=== PATIENT | male | born 1965 | race African-American/Black ===

== ENCOUNTER 2023-02-25 11:33 | Emergency (ER) | payer MEDICARE, SELFPAY ==
[2023-02-25 12:03] VITALS: BP 146/80; PULSE 82; RESP 18; TEMP 36.8; O2SAT 99; BMI 22.6
--- NOTE | 2023-02-25 12:10 | PC.NURSE ---
eval by pa in PIT and DC
--- NOTE | 2023-02-25 12:17 | ED_ITS ---
HPI - Dental/Oral General Chief complaint: Dental/Oral Stated complaint: dental pain Time Seen by Provider: 02/25/23 12:10 Source: patient Mode of arrival: ambulatory Limitations: no limitations History of Present Illness HPI Narrative: 58 yold male presents to the ED for dental pain of upper molars. patient admits to poor dental hygeine. Patient denies recent trauma to the face, drooling, change in voice, chest pain, or shortness of breath. patient denies any recent trauma. Related Data Previous Rx's Medication Instructions Recorded amoxicillin 875 mg-potassium 1 tab PO Q12H 10 days #20 tabs 02/25/23 clavulanate 125 mg tablet naproxen 500 mg tablet 500 mg PO BID PRN pain 7 days #14 02/25/23 tabs Allergies Allergy/AdvReac Type Severity Reaction Status Date / Time No Known Allergies Allergy Unverified 08/04/20 15:26 Review of Systems Review of Systems: dental pain Yes all other systems are reviewed and are negative [facility] Social History Social History Advance Directives: No Advance Directives Information Provided: Yes Physical Exam Vital Signs: Vital Signs: Last Vital Signs Temp 98.3 F 02/25/23 12:03 Pulse 82 02/25/23 12:03 Resp 18 02/25/23 12:03 BP 146/80 H 02/25/23 12:03 Pulse Ox 99 02/25/23 12:03 O2 Del Method Nasal Cannula 02/25/23 12:03 BMI result Body Mass Index 22.6 Const: General: cooperative, healthy appearing, comfortable, no acute distress, well developed, alert, awake and Physically active Orientation/consciousness: oriented to person, oriented to place, oriented to time and patient oriented x3 HEENT: Other: Negatie for any facial/neck swelling Head: Yes normal to inspection, Yes No palpable skull fracture present, Yes normocephalic, Yes atraumatic and No abrasion Ears: hearing grossly normal bilaterally, external ears normal, TM's normal bilaterally, EAC's normal, mastoids normal and no periauricular adenopathy Teeth and gingiva: poor dentition (molars poor dentition) Teeth image: 1. Poor molar/decaying dentition. no gum swelling/redness/pus discharge. 2. Poor molar/decaying dentition. no gum swelling/redness/pus discharge. Eyes: General: appearance normal, both eyes and all related structures Neck: Neck: Yes normal visual inspection, Yes full ROM, Yes no lymphadenopathy, Yes no meningeal signs, Yes trachea midline, Yes supple, No anterior neck swelling and No tender Chest: Chest palpation & inspection: normal inspection of the chest and normal palpation of entire chest wall Resp: Effort & Inspection: normal respiratory effort and able to speak in complete sentences Auscultation: clear to auscultation bilaterally Cardio: Jugular venous distension: no JVD Heart sounds: S1 normal heart sound present and S2 normal heart sound present GI: Inspection: Yes normal to inspection and No abdominal wall ecchymosis Palpation (GI): Soft to palpation, not firm, nontender, no guarding and not rigid : General: No CVA tenderness and Yes no CVA tenderness Back/Spine/Pelvis: Back: no CVA tenderness, No CVA tenderness and No back tenderness Skin: General skin exam: no rashes or lesions noted and elasticity normal Neuro: General: oriented to person, oriented to place, oriented to time, patient oriented x3, gait normal, tone normal, moves all extremities, Normal light touch and pain sensation, no meningeal signs, no focal motor deficits, CN's II-XI intact bilaterally and normal sensation to monofilament Extrem: General: Yes normal to inspection and Yes full ROM Psych: Appearance: grossly normal, well kempt and not disheveled Course Course Course Narrative: RME: patient presents to the ED for dental pain. physical exam patient has mutliple decaying teeth upper. no facial swelling/neck swelling. Reevaluation(s) Reevaluation #1: patient discharged with antibiotics and informed to follow up with dentists. patient given lists of dentists to call. patient informed to return to the ED if symptoms worseneds Medical Decision Making Medical Decision Making MDM Narrative: 58-year-old male presents to the ED for dental pain. Negative any facial swel ling, drooling, change in voice, hoarseness, submandibular swelling, neck swelling. Oral exam shows dental decay/poor dental hygiene. Patient discharged with antibiotics. Patient in any distress. History physical exam does not indicate retro pharyngeal abscess, Sebastian angina, dental abscess, or cellulitis. Differential Diagnosis Differential Diagnoses: The differential diagnosis associated with the presentation includes (Dental abscess, tooth infection, retropharyngeal abscess,) Admission/Observation Consideration of admission/observation: Escalation of care including admission/observation considered Prescription Management I considered prescription management with: Antibiotic Discharge Plan Discharge Clinical Impression: Toothache, Dental decay Patient Disposition: Home, Self-Care Instructions: Toothache (ED) Additional Instructions: Regrese al servicio de urgencias inmediatamente si tiene hinchaz?n facial, dolor de muelas, fiebre, escalofr?os, babeo, cambio de voz, hinchaz?n del jennifer o cualquier otro s?ntoma preocupante. llame a nate de los dentistas de la lista de dentistas que le dieron. Prescriptions: New amoxicillin-pot clavulanate 875-125 mg tablet 1 tab PO Q12H 10 Days Qty: 20 0RF naproxen 500 mg tablet 500 mg PO BID PRN (Reason: pain) 7 Days Qty: 14 0RF Stand Alone Forms: Work/School Release Interventions: ED Discharge Assessment Last Done: 02/25/23 12:10 Discharge Date/Time: 02/25/23 12:26 Print Language: Japanese
== END 2023-02-25 12:26 | disposition home or self-care (01) ==
PROVIDERS: Emergency Provider Emergency Medicine
DX: K02.9 Dental caries, unspecified (principal)
CPT/HCPCS: 99282; 99283

== ENCOUNTER 2023-12-26 13:03 | Emergency (ER) | payer MEDICARE, SELFPAY ==
--- NOTE | ~2023-12-26 | US_ITS ---
EXAMINATION: Noninvasive assessment of the right lower extremities with ARTERIAL DUPLEX. CLINICAL INFORMATION: Decreased pedal pulses TECHNIQUE: Duplex Doppler techniques with waveform analysis and measurement of velocities in the right common femoral, profunda femoris, superficial femoral, popliteal and tibial arteries were performed. COMPARISON: None FINDINGS: DIRECT DUPLEX DOPPLER FINDINGS: RIGHT LEG: Common femoral artery: 67.0 cm/s, phasicity: Biphasic. Mild calcified plaque Profunda femoris artery: 141 cm/s, phasicity: Triphasic Superficial femoral artery (proximal): 159 cm/s, phasicity: Triphasic Superficial femoral artery (mid): Occluded. 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 Dampened monophasic waveforms with decrease velocities in the popliteal artery and below-knee runoff vessels
--- NOTE | ~2023-12-26 | US_ITS ---
EXAMINATION: US VENOUS ULTRASOUND WITH DOPPLER LOWER EXTREMITY, RIGHT CLINICAL INFORMATION: Posterior right thigh pain COMPARISON: None available. TECHNIQUE: Ultrasound of the deep veins is performed from the hip to the calf with compression sonography and color and pulse Doppler assessment. Spectral analysis with color-flow imaging is performed. FINDINGS: There is normal venous compression and respiratory variation and augmented flow. The visualized common femoral vein, superficial femoral vein, profunda femoral vein, popliteal vein, and the trifurcation region shows no evidence of deep venous thrombosis. There is no significant popliteal fossa cyst. If the patient's symptoms persist, followup ultrasound in 5 days 7 days might be of value to exclude proximal propagation from a non-visualized calf vein. US/US venous duplex LE RT IMPRESSION: No DVT demonstrated in the right lower extremity.
[2023-12-26 13:23] VITALS: BP 140/87; PULSE 91; RESP 17; TEMP 36.7; O2SAT 98; BMI 22.6
--- NOTE | 2023-12-26 13:25 | ED_ITS ---
HPI - Extremity Problem General Chief complaint: Extremity Problem Stated complaint: R foot pain Time Seen by Provider: 12/26/23 14:10 Source: patient Mode of arrival: ambulatory Limitations: no limitations History of Present Illness HPI Narrative: 58-year-old male presents with atraumatic right lower extremity pain for the past 3 days. Patient reports the pain is mostly in his thigh, and he will, he denies any blunt trauma. Nothing like this has ever happened to him before. Denies numbness, tingling. No history of DVT or PE. Denies long travel. Denies chest pain, shortness of breath, fevers, chills, headache, vision changes, dizziness. Related Data Previous Rx's Medication Instructions Recorded amoxicillin 875 mg-potassium 1 tab PO Q12H 10 days #20 tabs 02/25/23 clavulanate 125 mg tablet naproxen 500 mg tablet 500 mg PO BID PRN pain 7 days #14 02/25/23 tabs acetaminophen 325 mg capsule 650 mg (2 x 325 mg) PO Q4H PRN 12/26/23 (Tylenol) pain #30 caps aspirin 81 mg capsule 81 mg PO DAILY #30 caps 12/26/23 Allergies Allergy/AdvReac Type Severity Reaction Status Date / Time No Known Allergies Allergy Unverified 08/04/20 15:26 Review of Systems 2 Review of Systems: Yes all other systems are reviewed and are negative [facility] Past Medical History Attestation statement: The following information was validated with the patient. Source: old records reviewed and nursing notes reviewed Social History Social History Advance Directives: No Physical Exam 2 Vital Signs: Vital Signs: Last Vital Signs Temp 98.0 F 12/26/23 13:23 Pulse 91 12/26/23 13:23 Resp 17 12/26/23 13:23 BP 140/87 H 12/26/23 13:23 Pulse Ox 98 12/26/23 13:23 O2 Del Method Room Air 12/26/23 13:23 BMI result Body Mass Index 22.6 vss Appearance: Alert.? Oriented X3.? No acute distress.? Head: Normocephalic, atraumatic, no step-offs or deformities Eyes: Pupils equal, round and reactive to light.? ENT: Pharynx normal.? Neck: Normal inspection.? Neck supple.? CVS: Normal heart rate and rhythm.? Pulses normal.? Respiratory: No respiratory distress.? Breath sounds normal.? Abdomen: Soft and nontender.? Skin: Skin warm and dry.? Normal skin color.? Normal skin turgor.? Extremities: No lower extremity edema.? Negative luisito on left, + luisito on right . 5/5 strength to bilateral upper and lower extremities 2+ DP,AT,PT pulses to LLE 1+ to RLE Neuro: Oriented X 3.? No motor deficit.? No sensory deficit. CN 2-12 intact Course Course Course Narrative: RME: c/o right posterior thigh and ankle pain, 08/27. Denies any trauma. Reevaluation(s) Reevaluation #1: CBC with slight leukocytosis. Chemistry no acute findings requiring intervention. Chemistry no acute findings. Venous duplex no DVT demonstrated in right lower extremity. 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 Dampened monophasic waves with decreased velocities in the popliteal artery and below knee runoff vessels. I did discuss this case with vascular doctor Dr. Horton who recommends outpatient follow-up. Nothing to be done acutely about this. Will give patient Tylenol for pain. Educated patient on diagnosis and treatment plan, answered all question, patient verbalizes understanding. At this time patient will be discharged home, advised to return with new or worsening symptoms. Educated on worrisome signs and symptoms and when to return. At this time I feel comfortable discharge home. Time: 15:56 Medical Decision Making Medical Decision Making [facility] Narrative: 1420 58 yo m presents w/ R posterior thigh pain and heel pain X 3 days. Atruamatic PE 2+ DP,AT,PT pulses to LLE 1+ to RLE Concerns for DVT vs msk pain vs arterial occlusion w/ ? collateral circulation. Plan- US venous of RLE. Differential Diagnosis Differential Diagnoses: The differential diagnosis associated with the presentation includes Concerns for DVT vs msk pain vs arterial occlusion w/ ? collateral circulation. Admission/Observation Consideration of admission/observation: Escalation of care including admission/observation considered Consult Healthcare Provider Management of the patient was discussed with: Computational Physicist Lab Data [facility] Lab Attestation statement: I reviewed the patient's lab results. 12/26/23 15:00 12/26/23 15:00 Labs: Lab Results 12/26/23 Range/Units 15:00 WBC 11.1 H (4.8-10.8) X10*3/uL RBC 4.70 (4.60-5.80) X10*6/uL Hgb 13.5 L (14.0-18.0) g/dl Hct 41.4 L (42.0-52.0) % MCV 88.1 (80.0-98.0) fL MCH 28.7 (27.0-33.0) pg MCHC 32.6 (31.0-36.0) g/dl RDW 13.3 (11.0-16.0) % Plt Count 205 (160-400) X10*3/uL MPV 11.5 (9.4-12.4) fL Immature Gran % (Auto) 0.3 (0.0-0.4) % Neut % (Auto) 65.1 (45-73) % Lymph % (Auto) 24.6 (20-40) % [place] % (Auto) 6.9 (2-11) % Eos % (Auto) 2.6 (0-4) % Baso % (Auto) 0.5 (0-2) % Lymph # (Auto) 2.7 (1.2-4.9) X10*3/uL [place] # (Auto) 0.8 (0.1-1.2) X10*3/uL Eos # (Auto) 0.3 (0.0-0.4) X10*3/uL Baso # (Auto) 0.1 (0.0-0.2) X10*3/uL Abs Immat Gran (auto) 0.03 (0.00-0.03) X10*3/uL Absolute Neuts (auto) 7.2 (2.0-8.3) x10*3/uL Absolute Nucleated RBC 0.000 (0.0-0.012) X10*3/uL Nucleated RBC % (auto) 0.0 (0.0-0.2) /100WBC PT 12.0 (11.1-13.3) SEC INR 1.0 (0.9-1.1) Sodium 141 (135-145) mmol/L Potassium 4.4 (3.3-5.1) mmol/L Chloride 107 (96-108) mmol/L Carbon Dioxide 27 (22-29) mmol/L Anion Gap 11 L (12-20) BUN 13 (9-16) mg/dL Creatinine 0.96 (0.5-1.4) mg/dL Estim Creat Clear Calc 73.3 Estimated GFR > 60 Random Glucose 78 (60-115) mg/dL Calcium 8.9 (8.4-10.2) mg/dL Magnesium 2.2 (1.6-2.6) mg/dL Total Bilirubin 0.2 (0.0-1.0) mg/dL AST 15 (5-37) U/L ALT 12 (0-40) U/L Alkaline Phosphatase 91 (39-117) U/L Total Protein 6.9 (6.5-8.0) g/dL Albumin 3.8 (3.5-5.0) g/dL Independent Interpretation I performed an independent interpretation of an: Ultrasound (US/US venous duplex LE RT IMPRESSION: No DVT demonstrated in the right lower extremity. 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 Dampened monophasic waveforms with decrease velocities in the popliteal artery and below-knee runoff vessels Radiology Impression Discussion of test interpretation with radiology: I have reviewed the radiologist's reading. Social Determinants Patient?s care significantly limited by Social Determinants of Health including: Other Social Determinant of Health Critical Care Time Critical Care Time Critical Care Time: Yes Total Critical Care Time: 45 Attestation: I attest to this time spent taking care of the patient, obtaining history, physical, reviewing labs, imaging, speaking to my attending, speaking to specialist. Discharge Plan Discharge Clinical Impression: Acute pain of right lower extremity Patient Disposition: Home, Self-Care Instructions: Leg Pain (ED) Additional Instructions: Take your medications as prescribed. If you were prescribed antibiotics today, it is important that you take your medication to their entirety, do not skip any doses, do not finish them early. Follow-up with your primary care provider this week. Return to the emergency department with new or worsening symptoms. Such as fevers, chills, chest pain, shortness of breath, nausea, vomiting, dizziness, headache, vision changes, lethargy In case of emergency call 911 US/US venous duplex LE RT IMPRESSION: No DVT demonstrated in the right lower extremity. 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 Dampened monophasic waveforms with decrease velocities in the popliteal artery and below-knee runoff vessels Prescriptions: New acetaminophen [Tylenol] 325 mg capsule 650 mg PO Q4H PRN (Reason: pain) Qty: 30 0RF aspirin 81 mg capsule 81 mg PO DAILY Qty: 30 0RF No Action amoxicillin-pot clavulanate 875-125 mg tablet 1 tab PO Q12H 10 Days Qty: 20 0RF naproxen 500 mg tablet 500 mg PO BID PRN (Reason: pain) 7 Days Qty: 14 0RF Referrals: [facility] [Provider Group] - 1 day Physician,Unknown J [Primary Care Provider] - 2 days
[2023-12-26 15:06] LABS: MANUAL DIFF FLAG NO
[2023-12-26 15:11] LABS: Basophils Absolute Auto 0.1 X10*3/uL (0.0-0.2); Basophils Percent Auto 0.5 % (0-2); Eosinophils Absolute Auto 0.3 X10*3/uL (0.0-0.4); Eosinophils Percent Auto 2.6 % (0-4); Hematocrit 41.4 % (42.0-52.0); Hemoglobin 13.5 g/dl (14.0-18.0); Imm Gran Abs Auto 0.03 X10*3/uL (0.00-0.03); Imm Gran Pct Auto 0.3 % (0.0-0.4); Lymphocytes Absolute Auto 2.7 X10*3/uL (1.2-4.9); Lymphocytes Percent Auto 24.6 % (20-40); Mean Corpuscular HGB Conc 32.6 g/dl (31.0-36.0); Mean Corpuscular Hemoglobin 28.7 pg (27.0-33.0); Mean Corpuscular Volume 88.1 fL (80.0-98.0); Mean Platelet Volume 11.5 fL (9.4-12.4); Monocytes Absolute Auto 0.8 X10*3/uL (0.1-1.2); Monocytes Percent Auto 6.9 % (2-11); Neutrophils Absolute Auto 7.2 x10*3/uL (2.0-8.3); Neutrophils Percent Auto 65.1 % (45-73); Platelet Count 205 X10*3/uL (160-400); Red Cell Distribution Width 13.3 % (11.0-16.0); White Blood Count 11.1 X10*3/uL (4.8-10.8)
[2023-12-26 15:23] LABS: Alanine Aminotransferase 12 U/L (0-40); Albumin Level 3.8 g/dL (3.5-5.0); Alkaline Phosphatase 91 U/L (39-117); Anion Gap 11 (12-20); Aspartate Amino Transferase 15 U/L (5-37); Bilirubin Total 0.2 mg/dL (0.0-1.0); Blood Urea Nitrogen 13 mg/dL (9-16); Calcium 8.9 mg/dL (8.4-10.2); Carbon Dioxide 27 mmol/L (22-29); Chloride 107 mmol/L (96-108); Creatinine Clr Calc Pharmacy 73.3; Estimated Glomerular Filt Rate > 60; Glucose Random 78 mg/dL (60-115); Magnesium 2.2 mg/dL (1.6-2.6); Potassium 4.4 mmol/L (3.3-5.1); Sodium 141 mmol/L (135-145); Total Protein 6.9 g/dL (6.5-8.0)
== END 2023-12-26 16:35 | disposition home or self-care (01) ==
PROVIDERS: Physician Assistant; Emergency Provider Emergency Medicine
DX: M79.604 Pain in right leg (principal); R60.0 Localized edema; Z79.899 Other long term (current) drug therapy
CPT/HCPCS: 36415; 80053; 83735; 85025; 85610; 93926; 93971; 99284

== ENCOUNTER 2024-05-11 22:11 | Emergency (ER) | payer MEDICARE, SELFPAY ==
--- NOTE | 2024-05-11 | ECG_ITS ---
Test Reason : FALL Blood Pressure : / mmHG Vent. Rate : 086 BPM Atrial Rate : 086 BPM P-R Int : 178 ms QRS Dur : 078 ms QT Int : 348 ms P-R-T Axes : 052 029 047 degrees QTc Int : 416 ms Normal sinus rhythm Minimal voltage criteria for LVH, may be normal variant ( Sokolow-Schmitt ) Borderline ECG When compared with ECG of 18-MAY-2012 20:46, No significant change was found Referred By: Tanja Solano Electronically Signed By:NEPTALI ENRIQUE MD
--- NOTE | ~2024-05-11 | CT_ITS ---
EXAMINATION: CT HEAD WITHOUT CONTRAST CT CERVICAL SPINE WITHOUT CONTRAST CLINICAL INFORMATION: Fall. COMPARISON: CT head 05/18/2012. TECHNIQUE: Contiguous axial imaging was performed from the skull base to vertex without intravenous administration of contrast. Contiguous axial imaging was performed from the upper chest through the skull base without intravenous administration of contrast. Coronal and sagittal reformats were obtained at the acquisition workstation. This CT examination was performed using dose optimization techniques as appropriate, variously including the following: *Automated exposure control *Adjustment of mA and/or kV according to patient size (this includes techniques or standardized protocols for targeted exams where dose is matched to indication/reason for exam; i.e. extremities or head) *Use of iterative reconstruction technique DLP: 952 mGy-cm FINDINGS: Head: There is no evidence of acute intracranial hemorrhage or edematous territorial infarction. A few foci of hypoattenuation in the periventricular and deep white matter are consistent with mild microangiopathy. Mathew-white matter differentiation is preserved. Proportional prominence of the ventricles and sulcal spaces. No evidence for obstructive hydrocephalus. No abnormal mass effect or midline shift. No extra-axial fluid collections. No acute soft tissue or osseous abnormalities. Large mucus retention cyst in the medial left maxillary sinus. No air-fluid levels. The mastoids and middle ear cavities are clear. Cervical Spine: The atlantooccipital and atlantoaxial articulations remain well aligned. Mild apical reversal of the cervical lordosis at C4-C5. Moderate multilevel cervical spondylosis with intervertebral disc height loss, marginal osteophytes and facet/uncal arthropathy leading to various degrees of neural foraminal encroachment. No evidence of acute compression deformity or traumatic subluxation. There is no prevertebral soft tissue swelling. The thyroid gland and remaining cervical soft tissues are normal in appearance. The lung apices demonstrate emphysematous changes. CT/CT cervical spine wo IV con IMPRESSION: 1. No acute intracranial pathology. 2. No acute cervical spinal fractures or malalignment. 3. Moderate cervical spondylosis.
--- NOTE | ~2024-05-11 | CT_ITS ---
EXAMINATION: CT CHEST WITH CONTRAST CT ABDOMEN AND PELVIS WITH CONTRAST CLINICAL INFORMATION: fall, flank pain. COMPARISON: No pertinent prior studies are available for comparison. TECHNIQUE: Multidetector volumetric imaging was performed from the thoracic inlet through the pubic symphysis following administration of intravenous contrast material. A total of 85 mL Omnipaque 300 was administered intravenously. Sagittal and coronal images were reformatted. This CT examination was performed using dose optimization techniques as appropriate, variously including the following: *Automated exposure control *Adjustment of mA and/or kV according to patient size (this includes techniques or standardized protocols for targeted exams where dose is matched to indication/reason for exam; i.e. extremities or head) *Use of iterative reconstruction technique DOSE: 452 mGy-cm FINDINGS: -CHEST- LUNG: Moderate centrilobular and paraseptal emphysema is evident at the lung apices. More mild emphysema in the midlungs and lung bases. Mild dependent atelectasis in the bases. Central airways are clear. There is a partially calcified 2 mm subpleural nodule in the lateral aspect of the left upper lobe which is of doubtful clinical significance, likely a granuloma. No suspicious pulmonary nodules are identified. MEDIASTINUM: The mediastinum in normal. The central vascular structures are unremarkable. No hilar or mediastinal lymphadenopathy. PERICARDIUM/PLEURA: No significant effusion. No pleural mass or thickening. CHEST WALL/AXILLA: Unremarkable. -ABDOMEN/PELVIS- LIVER, GALLBLADDER, BILIARY TREE: The liver is normal in size, shape, and attenuation. No focal hepatic lesion or biliary ductal dilatation is present. The gallbladder is unremarkable with no evidence of radiopaque gallstones, gallbladder wall thickening, or obvious pericholecystic inflammatory changes. PANCREAS: Normal; no mass or surrounding fluid. SPLEEN: Normal size. No focal lesion. ADRENAL GLANDS: Normal; no mass. KIDNEYS AND URETERS: The kidneys are normal in size, shape, and attenuation. No hydronephrosis, hydroureter, or calculi seen. No perinephric stranding. BLADDER: There is bladder wall thickening diffusely, though the bladder is decompressed. GASTROINTESTINAL TRACT: Stomach, small bowel, and colon are normal in caliber. No bowel wall thickening or surrounding inflammatory changes. Appendix is normal. No intraperitoneal free fluid or free air. ABDOMINAL WALL: No significant hernia is appreciated. VASCULATURE: Atherosclerotic calcifications are present in the abdominal aorta and iliac arteries. No aneurysmal dilatation. LYMPH NODES: No lymphadenopathy. . PELVIC VISCERA: Unremarkable. OSSEUS STRUCTURES: [id number] degenerative disc disease at L5-S1. Left foraminal disc osteophyte complex produces marked mass effect upon the exiting left L5 nerve root. Chronic right L5 pars defect. No acute fractures are identified in the chest, abdomen, and pelvis. Ribs appear intact. Scapulae are unremarkable. Minimal degenerative disc disease in the thoracic spine. Mild osteoarthritis the left hip. CT/CT abdomen pelvis w IV con IMPRESSION: 1. No acute traumatic injuries are identified in the chest, abdomen, and pelvis. 2. Moderate centrilobular and paraseptal emphysema. 3. Diffuse bladder wall thickening, likely due to underdistention. Consider correlation with urinalysis to exclude cystitis. 4. Degenerative disc disease at L5-S1 with a left foraminal disc osteophyte complex producing marked mass effect upon the exiting left L5 nerve root.
[2024-05-11 22:17] VITALS: BP 220/118; PULSE 78; BMI 19.3
[2024-05-11 22:20] VITALS: BP 190/102; PULSE 86; RESP 16; TEMP 36.2; O2SAT 98
--- NOTE | 2024-05-11 22:21 | ED.GENADULT ---
HPI - General Adult General Chief complaint: Fall Stated complaint: fell in tub day prior, no LOC, hx HTN Time Seen by Provider: 05/11/24 22:20 Source: patient, EMS and seismic interpreter (all interactions with this patient were facilitated with an [facility] foreign language interpreter) Mode of arrival: EMS Limitations: language barrier (all interactions with this patient were facilitated with an [facility] foreign language interpreter) History of Present Illness ED Provider: Tanja Solano PA-C HPI narrative: Patient is a 59 year old assigned male at with no reported medical history presenting to the emergency department today after a fall. Patient states that yesterday, he fell in the tub. Patient states that he was dizzy before the fall but he isn't sure that's what made him fall. Patient denies any head strike, loss of consciousness, dizziness, lightheadedness, abdominal pain, nausea, vomiting, fever, chills, blurry vision, double vision, loss of vision, chest pain, difficulty breathing, shortness of breath, back pain, night sweats, pain with urination, increased urinary frequency, increased urinary urgency, blood in his urine or stool, syncope or a near syncopal episode, bowel incontinence, bladder incontinence, or any other complaints at this time. Onset (ago): day(s) (1) Relieving factors: none Exacerbating factors: none Associated symptoms: denies other symptoms Treatments prior to arrival: none Related Data Previous Rx's ?Medication ?Instructions ?Recorded amoxicillin 875 mg-potassium 1 tab PO Q12H 10 days #20 tabs 02/25/23 clavulanate 125 mg tablet naproxen 500 mg tablet 500 mg PO BID PRN pain 7 days #14 02/25/23 tabs acetaminophen 325 mg capsule 650 mg (2 x 325 mg) PO Q4H PRN 12/26/23 (Tylenol) pain #30 caps aspirin 81 mg capsule 81 mg PO DAILY #30 caps 12/26/23 Allergies Allergy/AdvReac Type Severity Reaction Status Date / Time No Known Allergies Allergy Unverified 05/11/24 22:21 Review of Systems Constitutional: Constitutional: Reports no additional constitutional complaints, Denies chills, Denies fever(s) and Denies night sweats Eyes: Eyes: Reports no additional eye complaints, Denies blurry vision, Denies change in vision, Denies diplopia, Denies eye discharge, Denies loss of vision and Denies eye pain ENT: Reports dizziness Cardiovascular: Cardiovascular: Reports no additional cardiovascular complaints, Denies chest pain, Denies lightheadedness, Denies Loss of Consciousness and Denies dyspnea Respiratory: Respiratory: Reports no additional respiratory complaints and Denies dyspnea Gastrointestinal: Gastrointestinal: Reports no additional gastrointestinal complaints, Denies abdominal pain, Denies melena, Denies hematochezia, Denies change in bowel habits and Denies change in stool character Genitourinary: Genitourinary: Reports no additional male genitourinary complaints, Denies hematuria, Denies oliguria, Denies difficulty urinating, Denies dysuria, Denies urinary frequency, Denies urinary hesitancy, Denies urinary incontinence and Denies urinary urgency Musculoskeletal: Musculoskeletal: Reports no additional musculoskeletal complaints, Denies numbness and Denies tingling Neurologic: Reports dizziness, Denies loss of vision, Denies numbness and Denies tingling Psychiatric: Psychiatric: Reports no additional psychiatric complaints Endocrine: Endocrine: Reports no additional endocrine complaints Hematologic/Lymphatic: Hematologic/Lymphatic: Reports no additional hematologic/lymphatic complaints Allergic/Immunologic: Allergic/Immunologic: Reports no additional allergic/immunologic complaints PMFSH Past Medical History Attestation statement: The following information was validated with the patient. Source: old records reviewed and nursing notes reviewed Social History Social History Advance Directives: No Advance Directives Information Provided: No Physical Exam ED Vital Signs: Vital Signs - 24 hr 05/11/24 22:20 05/11/24 22:33 05/12/24 00:12 Temperature 97.2 F Pulse Rate 86 86 89 Respiratory Rate 16 16 Blood Pressure 190/102 H 155/98 H 150/91 H Pulse Oximetry 98 99 98 Oxygen Delivery Method Room Air Room Air Room Air BMI result Body Mass Index 19.3 Const General: cooperative, no acute distress, alert and awake Nutritional Appearance: well nourished Orientation/consciousness: patient oriented x3 Limitations: no limitations HENMT Head: Yes normal to inspection and Yes atraumatic Ears: hearing grossly normal bilaterally and external ears normal General nose exam: Normal external nose present, no nasal discharge noted and no epistaxis Face and sinus: Yes normal facial exam, No abrasion and No laceration Mouth: Normal oral and palatal mucosa present, no drooling and no muffled voice Eyes General: appearance normal, both eyes and all related structures Periorbital: periorbital findings normal Eyelids: Yes eyelids normal Conjunctivae: conjunctivae normal Pupils: Equal, round and reactive pupils present EOM: EOMs intact bilaterally Neck Neck: Yes normal visual inspection, Yes full ROM and Yes no lymphadenopathy Chest Chest palpation & inspection: normal inspection of the chest Resp Effort & Inspection: normal respiratory effort and able to speak in complete sentences GI Inspection: Yes normal to inspection Neuro General: patient oriented x3 and moves all extremities Cranial nerves: Yes Equal, round and reactive pupils present Cognition (Neuro): normal cognition Motor exam (neuro): 5/5 motor strength present throughout Sensory Exam: Normal double simultaneous stimulation for sensation Coordination: [id number] test normal Extrem General: Yes normal to inspection, Yes full ROM and Yes capillary refill normal Psych Appearance: grossly normal Mental Status: mental status grossly normal Affect: normal affect Attitude: cooperative Thought process: Normal thought process present Thought content: Normal thought content present Insight: Good insight present (Psych) Medications Administered Generic Name Dose Route Start Last Admin Trade Name Freq PRN Reason Stop Dose Admin Sodium Chloride 1,000 mls @ 999 mls/hr 05/12/24 00:45 05/12/24 00:49 Ns IV 05/12/24 01:45 999 mls/hr .Q1H1M JADA Administration Discontinued Medications Generic Name Dose Route Start Last Admin Trade Name Freq PRN Reason Stop Dose Admin Hydralazine HCl 5 mg 05/11/24 22:26 05/11/24 22:35 Hydralazine Hcl 20 Mg/Ml Vial IVPUSH 05/11/24 22:27 Not Given ONCE ONE Protocol Iohexol 85 ml 05/11/24 23:56 05/11/24 23:57 Iohexol 350 Mg/Ml 100 Ml Infus..Btl IV 05/11/24 23:57 85 ml ONCE ONE Administration Medical Decision Making Medical Decision Making [facility] Narrative: Patient is a 59 year old assigned male at with no reported medical history presenting to the emergency department today with dizziness and a fall. Patient's physical exam was unremarkable. Patient's blood work was unremarkable. Patient's urine is pending. Patient's EKG was unremarkable. Patient's CT head, c-spine, chest, and abdomen/pelvis showed no acute process. I explained my physical exam findings as well as all test results to the patient. I answered all questions asked by the patient. Patient signed out to Dr. Acosta pending UA results, orthostatic vital signs, and re-evaluation. Differential Diagnosis Differential Diagnoses: The differential diagnosis associated with the presentation includes Orthostatic hypotension Dizziness Fall UTI Admission/Observation Consideration of admission/observation: Escalation of care including admission/observation considered Patient's disposition will be determined after UA, orthostatic vitals, and re-evaluation. Lab Data [facility] Lab Attestation statement: I reviewed the patient's lab results. My interpretation of these results are in the [facility] Rationale portion of this note. 05/11/24 22:31 05/11/24 22:31 Labs: Lab Results 05/11/24 Range/Units 22:31 WBC 9.4 (4.8-10.8) X10*3/uL RBC 5.07 (4.60-5.80) X10*6/uL Hgb 15.1 (14.0-18.0) g/dl Hct 43.9 (42.0-52.0) % MCV 86.6 (80.0-98.0) fL MCH 29.8 (27.0-33.0) pg MCHC 34.4 (31.0-36.0) g/dl RDW 15.5 (11.0-16.0) % Plt Count 161 (160-400) X10*3/uL MPV 10.9 (9.4-12.4) fL Immature Gran % (Auto) 0.2 (0.0-0.4) % Neut % (Auto) 62.7 (45-73) % Lymph % (Auto) 23.5 (20-40) % [place] % (Auto) 11.6 H (2-11) % Eos % (Auto) 1.3 (0-4) % Baso % (Auto) 0.7 (0-2) % Lymph # (Auto) 2.2 (1.2-4.9) X10*3/uL [place] # (Auto) 1.1 (0.1-1.2) X10*3/uL Eos # (Auto) 0.1 (0.0-0.4) X10*3/uL Baso # (Auto) 0.1 (0.0-0.2) X10*3/uL Abs Immat Gran (auto) 0.02 (0.00-0.03) X10*3/uL Absolute Neuts (auto) 5.9 (2.0-8.3) x10*3/uL Absolute Nucleated RBC 0.000 (0.0-0.012) X10*3/uL Nucleated RBC % (auto) 0.0 (0.0-0.2) /100WBC Sodium 143 (135-145) mmol/L Potassium 4.5 (3.3-5.1) mmol/L Chloride 105 (96-108) mmol/L Carbon Dioxide 26 (22-29) mmol/L Anion Gap 17 (12-20) BUN 11 (9-16) mg/dL Creatinine 1.13 (0.5-1.4) mg/dL Estim Creat Clear Calc 54.1 Estimated GFR > 60 Random Glucose 104 (60-115) mg/dL Calcium 9.3 (8.4-10.2) mg/dL Magnesium 1.9 (1.6-2.6) mg/dL Total Bilirubin 0.6 (0.0-1.0) mg/dL AST 30 (5-37) U/L ALT 24 (0-40) U/L Alkaline Phosphatase 82 (39-117) U/L Troponin I High Sens < 2.7 (<3.5-35.0) ng/L Total Protein 7.5 (6.5-8.0) g/dL Albumin 4.2 (3.5-5.0) g/dL Ethyl Alcohol < 10 mg/dL Independent Interpretation I performed an independent interpretation of an: EKG and CT Scan Interpretation: My interpretation is in agreement with the radiologist's impression of these imaging studies. EXAMINATION: CT HEAD WITHOUT CONTRAST CT CERVICAL SPINE WITHOUT CONTRAST CLINICAL INFORMATION: Fall. COMPARISON: CT head 05/18/2012. TECHNIQUE: Contiguous axial imaging was performed from the skull base to vertex without intravenous administration of contrast. Contiguous axial imaging was performed from the upper chest through the skull base without intravenous administration of contrast. Coronal and sagittal reformats were obtained at the acquisition workstation. This CT examination was performed using dose optimization techniques as appropriate, variously including the following: *Automated exposure control *Adjustment of mA and/or kV according to patient size (this includes techniques or standardized protocols for targeted exams where dose is matched to indication/reason for exam; i.e. extremities or head) *Use of iterative reconstruction technique DLP: 952 mGy-cm FINDINGS: Head: There is no evidence of acute intracranial hemorrhage or edematous territorial infarction. A few foci of hypoattenuation in the periventricular and deep white matter are consistent with mild microangiopathy. Mathew-white matter differentiation is preserved. Proportional prominence of the ventricles and sulcal spaces. No evidence for obstructive hydrocephalus. No abnormal mass effect or midline shift. No extra-axial fluid collections. No acute soft tissue or osseous abnormalities. Large mucus retention cyst in the medial left maxillary sinus. No air-fluid levels. The mastoids and middle ear cavities are clear. Cervical Spine: The atlantooccipital and atlantoaxial articulations remain well aligned. Mild apical reversal of the cervical lordosis at C4-C5. Moderate multilevel cervical spondylosis with intervertebral disc height loss, marginal osteophytes and facet/uncal arthropathy leading to various degrees of neural foraminal encroachment. No evidence of acute compression deformity or traumatic subluxation. There is no prevertebral soft tissue swelling. The thyroid gland and remaining cervical soft tissues are normal in appearance. The lung apices demonstrate emphysematous changes. CT/CT head/brain wo IV con IMPRESSION: 1. No acute intracranial pathology. 2. No acute cervical spinal fractures or malalignment. 3. Moderate cervical spondylosis. Dictated By: Kiana River Signed By: Electronically signed by Kiana River 05/12/24 0029 EXAMINATION: CT CHEST WITH CONTRAST CT ABDOMEN AND PELVIS WITH CONTRAST CLINICAL INFORMATION: fall, flank pain. COMPARISON: No pertinent prior studies are available for comparison. TECHNIQUE: Multidetector volumetric imaging was performed from the thoracic inlet through the pubic symphysis following administration of intravenous contrast material. A total of 85 mL Omnipaque 300 was administered intravenously. Sagittal and coronal images were reformatted. This CT examination was performed using dose optimization techniques as appropriate, variously including the following: *Automated exposure control *Adjustment of mA and/or kV according to patient size (this includes techniques or standardized protocols for targeted exams where dose is matched to indication/reason for exam; i.e. extremities or head) *Use of iterative reconstruction technique DOSE: 452 mGy-cm FINDINGS: -CHEST- LUNG: Moderate centrilobular and paraseptal emphysema is evident at the lung apices. More mild emphysema in the midlungs and lung bases. Mild dependent atelectasis in the bases. Central airways are clear. There is a partially calcified 2 mm subpleural nodule in the lateral aspect of the left upper lobe which is of doubtful clinical significance, likely a granuloma. No suspicious pulmonary nodules are identified. MEDIASTINUM: The mediastinum in normal. The central vascular structures are unremarkable. No hilar or mediastinal lymphadenopathy. PERICARDIUM/PLEURA: No significant effusion. No pleural mass or thickening. CHEST WALL/AXILLA: Unremarkable. -ABDOMEN/PELVIS- LIVER, GALLBLADDER, BILIARY TREE: The liver is normal in size, shape, and attenuation. No focal hepatic lesion or biliary ductal dilatation is present. The gallbladder is unremarkable with no evidence of radiopaque gallstones, gallbladder wall thickening, or obvious pericholecystic inflammatory changes. PANCREAS: Normal; no mass or surrounding fluid. SPLEEN: Normal size. No focal lesion. ADRENAL GLANDS: Normal; no mass. KIDNEYS AND URETERS: The kidneys are normal in size, shape, and attenuation. No hydronephrosis, hydroureter, or calculi seen. No perinephric stranding. BLADDER: There is bladder wall thickening diffusely, though the bladder is decompressed. GASTROINTESTINAL TRACT: Stomach, small bowel, and colon are normal in caliber. No bowel wall thickening or surrounding inflammatory changes. Appendix is normal. No intraperitoneal free fluid or free air. ABDOMINAL WALL: No significant hernia is appreciated. VASCULATURE: Atherosclerotic calcifications are present in the abdominal aorta and iliac arteries. No aneurysmal dilatation. LYMPH NODES: No lymphadenopathy. . PELVIC VISCERA: Unremarkable. OSSEUS STRUCTURES: [id number] degenerative disc disease at L5-S1. Left foraminal disc osteophyte complex produces marked mass effect upon the exiting left L5 nerve root. Chronic right L5 pars defect. No acute fractures are identified in the chest, abdomen, and pelvis. Ribs appear intact. Scapulae are unremarkable. Minimal degenerative disc disease in the thoracic spine. Mild osteoarthritis the left hip. CT/CT chest w IV con IMPRESSION: 1. No acute traumatic injuries are identified in the chest, abdomen, and pelvis. 2. Moderate centrilobular and paraseptal emphysema. 3. Diffuse bladder wall thickening, likely due to underdistention. Consider correlation with urinalysis to exclude cystitis. 4. Degenerative disc disease at L5-S1 with a left foraminal disc osteophyte complex producing marked mass effect upon the exiting left L5 nerve root. Dictated By: Quinten Mitchell MD Signed By: Electronically signed by Quinten Mitchell MD 05/12/24 0025 Vent. Rate: 086 BPM Atrial Rate: 086 BPM P-R Int: 178 ms QRS Dur: 078 ms QT Int: 348 ms P-R-T Axes: 052 029 047 degrees QTc Int: 416 ms Normal sinus rhythm Minimal voltage criteria for LVH, may be normal variant (Sokolow-Schmitt) Borderline ECG When compared with ECG of 18-MAY-2012 20:46, No significant change was found DD/ 2248 Radiology Impression Discussion of test interpretation with radiology: I have reviewed the radiologist's reading. Independent Historian Clinical information obtained from an independent historian. History obtained from or confirmed by: EMS (EMS provided additional history and confirmed the history provided by the patient. ) Critical Care Time Critical Care Time Critical Care Time: Yes Total Critical Care Time: 32 Attestation: I spent 32 minutes of Critical Care Time with this patient. This does not include time spent on separately reported billable procedures. Discharge Plan Discharge Clinical Impression: Dizziness, Fall Patient Disposition: Still a Patient Prescriptions: No Action amoxicillin-pot clavulanate 875-125 mg tablet 1 tab PO Q12H 10 Days Qty: 20 0RF naproxen 500 mg tablet 500 mg PO BID PRN (Reason: pain) 7 Days Qty: 14 0RF acetaminophen [Tylenol] 325 mg capsule 650 mg PO Q4H PRN (Reason: pain) Qty: 30 0RF aspirin 81 mg capsule 81 mg PO DAILY Qty: 30 0RF Print Language: [place]
[2024-05-11 22:33] VITALS: BP 155/98; PULSE 86; O2SAT 99
[2024-05-11 22:37] LABS: Basophils Absolute Auto 0.1 X10*3/uL (0.0-0.2); Basophils Percent Auto 0.7 % (0-2); Eosinophils Absolute Auto 0.1 X10*3/uL (0.0-0.4); Eosinophils Percent Auto 1.3 % (0-4); Hematocrit 43.9 % (42.0-52.0); Hemoglobin 15.1 g/dl (14.0-18.0); Imm Gran Abs Auto 0.02 X10*3/uL (0.00-0.03); Imm Gran Pct Auto 0.2 % (0.0-0.4); Lymphocytes Absolute Auto 2.2 X10*3/uL (1.2-4.9); Lymphocytes Percent Auto 23.5 % (20-40); MANUAL DIFF FLAG NO; Mean Corpuscular HGB Conc 34.4 g/dl (31.0-36.0); Mean Corpuscular Hemoglobin 29.8 pg (27.0-33.0); Mean Corpuscular Volume 86.6 fL (80.0-98.0); Mean Platelet Volume 10.9 fL (9.4-12.4); Monocytes Absolute Auto 1.1 X10*3/uL (0.1-1.2); Monocytes Percent Auto 11.6 % (2-11); Neutrophils Absolute Auto 5.9 x10*3/uL (2.0-8.3); Neutrophils Percent Auto 62.7 % (45-73); Platelet Count 161 X10*3/uL (160-400); Red Blood Count 5.07 X10*6/uL (4.60-5.80); Red Cell Distribution Width 15.5 % (11.0-16.0); White Blood Count 9.4 X10*3/uL (4.8-10.8)
[2024-05-11 22:53] LABS: Alanine Aminotransferase 24 U/L (0-40); Albumin Level 4.2 g/dL (3.5-5.0); Alkaline Phosphatase 82 U/L (39-117); Anion Gap 17 (12-20); Aspartate Amino Transferase 30 U/L (5-37); Bilirubin Total 0.6 mg/dL (0.0-1.0); Blood Urea Nitrogen 11 mg/dL (9-16); Calcium 9.3 mg/dL (8.4-10.2); Carbon Dioxide 26 mmol/L (22-29); Chloride 105 mmol/L (96-108); Creatinine Clr Calc Pharmacy 54.1; Estimated Glomerular Filt Rate > 60; Ethanol < 10 mg/dL; Glucose Random 104 mg/dL (60-115); Magnesium 1.9 mg/dL (1.6-2.6); Potassium 4.5 mmol/L (3.3-5.1); Sodium 143 mmol/L (135-145); Total Protein 7.5 g/dL (6.5-8.0)
[2024-05-11 23:00] LABS: Troponin-I High Sensitivity < 2.7 ng/L (<3.5-35.0)
[2024-05-11] MEDS: iohexoL 350 MG/ML 100 ML INFUS..BTL 85 ML IV (23:57)
[2024-05-12] VITALS (7 sets, daily range): BP systolic 110–189; BP diastolic 59–105; PULSE 68–89; RESP 16–17; TEMP 36.2–36.4; O2SAT 95–98
[2024-05-12] MEDS: 0.9 % Sodium Chloride 1,000 ML 999 ML IV (00:49)
[2024-05-12 02:21] LABS: Appearance Urine Clear; Color Urine Yellow; Glucose Urine UA Negative (Negative); Leukocyte Esterase Urine Negative (Negative); Nitrite Urine Negative (Negative); Specific Gravity - Urine >= 1.030 (1.005-1.025); Urine Blood Negative (Negative); Urine Ketones Trace mg/dL (Negative); Urine Protein Negative (Neg-Trace)
--- NOTE | 2024-05-12 08:08 | PC.NURSE ---
patient sitting up in bed, eating breakfast, utilized embroidery cutter to given patient an update of plan of care.patient currently waiting for PT eval. patient is alert and oriented x4, respirations equal and unlabored.
[2024-05-12 09:08] LABS: COVID-19 Test Negative (Negative); IDNOW Serial# 152EDE1D
--- NOTE | 2024-05-12 10:24 | MHC.CM.ED ---
Received case management consult overnight. Patient came to the ER after a fall. Work up essentially negative. Physical therapy eval completed. No services indicated. Met with patient and double end tenoner setter in regards to discharge planning. Patient lives alone, ambulates independently and had no services prior to coming to the hospital. Patient denies having a HCP or PCP. [facility] shuttle will be arranged to transport patient home. Patient, Angela STALLINGS and Patricia DHILLON aware. Continue to monitor for d/c needs.
--- NOTE | 2024-05-12 10:37 | PC.NURSE ---
patient iv removed, plan for patient to be d/c with transportation home via hospital van
--- NOTE | 2024-05-12 11:03 | PC.NURSE ---
patient ambulated off of unit with steady gait
== END 2024-05-12 11:03 | disposition still patient (30) ==
PROVIDERS: Physician Assistant Medical; Emergency Provider Internal Medicine
DX: S09.90XA Unspecified injury of head, initial encounter (principal); R26.81 Unsteadiness on feet; M54.2 Cervicalgia; R51.9 Headache, unspecified; R07.81 Pleurodynia; R10.2 Pelvic and perineal pain; W01.10XA Fall on same level from slipping, tripping and stumbling with subsequent striking against unspecified object, initial encounter; Y93.E1 Activity, personal bathing and showering; Y92.002 Bathroom of unspecified non-institutional (private) residence as the place of occurrence of the external cause; Y99.8 Other external cause status; Z11.52 Encounter for screening for COVID-19; Z79.899 Other long term (current) drug therapy; Z51.81 Encounter for therapeutic drug level monitoring
CPT/HCPCS: 36415; 70450; 71260; 72125; 74177; 80053; 80307; 81003; 83735; 84484; 85025; 87635; 93005; 97161; 99285; Q9967

== ENCOUNTER → 2024-05-11 22:48 | Outpatient (BNV) | payer MEDICARE, SELFPAY | PROVIDERS: Emergency Provider Internal Medicine; Visit Provider Internal Medicine Cardiovascular Disease | DX: R42 Dizziness and giddiness (principal) | CPT/HCPCS: 93010 ==